=== PATIENT | female | born 1980 | race Caucasian/White ===

== ENCOUNTER 2024-02-07 07:23 | Emergency (ER) | payer OTHER ==
[~2024-02-07] VITALS: Ht 180.3 cm; Wt 110.7 kg
[2024-02-07 12:34] VITALS: BP 134/80; TEMP 97; O2SAT 100
[2024-02-07] MEDS ORDERED: BACT800T5 PO (12:45)
== END 2024-02-07 12:53 | disposition home or self-care (01) ==
LOC: M ED 07:23
DX: N76.4 Abscess of vulva (principal); Z79.2 Long term (current) use of antibiotics